=== PATIENT | female | born 1970 | race Caucasian/White ===

== ENCOUNTER 2022-09-14 12:15 | Outpatient (RCR) | payer OTHER, SELFPAY ==
--- NOTE | 2022-09-14 14:14 | OTOPEVDC ---
Assessment and note entered by Koko Mcdonnell, OTR/L, CHT Thank you for referring Gudelia Calzada to [facility].? An evaluation has been completed. No further treatment is needed. Evaluation Information Assessment Status Evaluation Diagnosis Fibromyalgia Subjective Information Patient reports limited community mobility due to severe, chronic pain. This is exacerbated by prolonged activity or walking distances, such as going to the grocery store. Her goal with an optimally fitted w/c - would be to be independent with community mobility, I'd like to get a wheelchair that I can push myself. Noting that wheelchairs at the store do not fit her and are typically in poor condition. Reported Pain Level Additional Pain Score Comments Patient has chronic neck, shoulder, back, hip, knee, and ankle pain. She rates these areas anywhere from 2-6/10 today. Assessment OT Clinical Summary Patient participated in functional OT evaluation and assessment of manual w/c skills. A standard manual w/c is necessary for this patient because she is unable to safely participate or complete community mobility due to pain and muscle fatigue. She is unable to safely use an optimally fitted cane or walker for community mobility distances and would be confined to her home without the use of a w/c. The recommended seated system will significancy improve this patient's ability to get to MD appts and improve her participation in MRADL's such as grocery shopping, general shopping , and leisure activities such as going to the art museum. This will facilitate optimal safety, independence and participation. She has demonstrated sufficient physical and mental capabilities needed to safely propel an optimally configured manual w/c. No care plan established as she was referred for a mobility evaluation only. Discharging from OT services. Plan of Care OT Services Indicated No
== END 2022-11-30 08:41 | disposition home or self-care (01) ==
LOC: ANHOT 12:15
PROVIDERS: PCP Family Medicine
DX: Z46.89 Encounter for fitting and adjustment of other specified devices (principal); M79.7 Fibromyalgia
CPT/HCPCS: 97166

== ENCOUNTER 2024-11-24 08:19 | Outpatient (CLI) | payer OTHER, SELFPAY ==
--- NOTE | ~2024-11-24 | MM_ITS ---
EXAMINATION: MM screening arnoldo BI w hamzah HISTORY: Screening TECHNIQUE: Craniocaudal and mediolateral oblique 3-D tomosynthesis images were obtained and synthetic 2-D images were generated. CAD analysis was submitted and interpreted. COMPARISON: No prior mammogram is available for comparison at this institution. BREAST PARENCHYMAL COMPOSITION: Dense: The breasts are heterogeneously dense, which may obscure small masses FINDINGS: There is no evidence of suspicious mass, calcification, or architectural distortion to sugg est malignancy in either breast. There has been no suspicious interval change. IMPRESSION: 1. No mammographic evidence of malignancy. 2. Recommend routine screening mammography in one year. BI-RADS Category 1: Negative Reviewed, dictated and finalized at location B.
== END 2024-11-24 08:20 | disposition home or self-care (01) ==
LOC: ANHIMG 08:22
PROVIDERS: PCP Family Medicine
DX: Z12.31 Encounter for screening mammogram for malignant neoplasm of breast (principal)
CPT/HCPCS: 77063; 77067